=== PATIENT | female | born 1990 | race African-American/Black ===

== ENCOUNTER 2018-12-15 14:15 | Emergency (ER) | payer SELFPAY ==
[~2018-12-15] VITALS: Ht 172.7 cm; Wt 99.8 kg
[2018-12-15] MEDS ORDERED: CYCLOBENZAPRINE HCL 10 MG TAB PO NR (15:45)
[2018-12-15] MEDS ORDERED: IBUPROFEN 600 MG TAB PO NR (16:00)
[2018-12-15] MEDS ORDERED: HYDROCODONE/APAP 10MG-325MG TAB PO ONE (16:15)
[2018-12-15 17:09] LABS: BILIRUBIN,URINE NEGATIVE (NEGATIVE); CLARITY,URINE CLEAR (CLEAR); COLOR,URINE YELLOW (YELLOW); KETONES,URINE NEGATIVE (NEGATIVE); LEUKOCYTE ESTERASE ,URINE SMALL (NEGATIVE); NITRITE,URINE NEGATIVE (NEGATIVE); PROTEIN,URINE DIPSTICK TRACE (NEGATIVE); URINE UROBILINOGEN 0.2 mg/dL (0.2 - 1)
[2018-12-15 17:23] LABS: BACTERIA,URINE RARE /HPF; EPITHELIAL CELLS,URINE FEW /LPF; RBC,URINE 0-5 /HPF (0-5); WBC,URINE (MAN) 0-5 /HPF (0-5)
[2018-12-15 17:24] LABS: PREGNANCY TEST, URINE NEGATIVE (NEGATIVE)
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
== END 2018-12-15 19:06 | disposition home or self-care (01) ==
LOC: ER 14:15
DX: S39.012A Strain of muscle, fascia and tendon of lower back, initial encounter (principal); R10.9 Unspecified abdominal pain; V43.52XA Car driver injured in collision with other type car in traffic accident, initial encounter; Y92.488 Other paved roadways as the place of occurrence of the external cause
CPT/HCPCS: 72070; 72100; 72170; 81001; 81025; 99283